=== PATIENT | female | born 1990 | race Caucasian/White ===

== ENCOUNTER → 2020-09-08 15:37 | Outpatient (CLI) | payer OTHER, SELFPAY ==
[2020-09-08 17:37] LABS: HCG Quantitative /Beta subunit < 2.4 mIU/mL
== END ==
LOC: LAB 15:39
PROVIDERS: PCP Obstetrics & Gynecology; Referring Provider Obstetrics & Gynecology; Visit Provider Obstetrics & Gynecology
DX: N92.6 Irregular menstruation, unspecified (principal)
CPT/HCPCS: 36415; 84702